=== PATIENT | male | born 1945 | race Caucasian/White ===

== ENCOUNTER → 2017-02-07 | Outpatient (CLI) | payer OTHER ==
[~2017-02-07] MED LIST: ADVAIR 250-501 EACH INH; ALBUTEROL17 GM INH; ALPRAZOLAM PO; AMLODIPINE BESYL5 MG PO; ASPIRINEC PO; BUTALBITAL/APAP/CAFF; COMBIVENT MININEB INH; COMBIVENT RESPIM4 GM INH; DARVOCET-N 1001 TAB PO; DURAGESIC75 MCG TOP; FENTANYL1 EAC2 TD; FLAGYL PO; FLEXERIL PO; FLEXERIL10 MG PO; GABAPENTIN600 MG PO; KCL PO; LASIX PO; LEVAQUIN PO; LISINOPRIL PO; LOPRESSOR PO; LORTAB 10-3251 EACH PO; LORTAB 7.5-5001 TAB PO; NALBUPHINE; NALBUPHINE IM; NALBUPHINE SUBQ; NEURONTIN600 MG PO; PAXIL PO; PERCOCET 10/3251 TAB PO; PERCOCET10 PO; PHENERGAN PO; PREDNISONE10 MG PO; PRINIVIL40 MG PO; TRAZADONE; TRAZODONE HCL150 MG PO; TRAZODONE PO; VICODIN 5/500 T1 TAB PO; VITAMIN D50000 UNIT PO; XANAX1 MG PO; ZOCOR PO; ZOCOR-BORROW, D10 MG PO; ZOCOR10 MG PO; ZOFRAN PO; [UNRECOGNIZED DRUG - REMARK]
--- NOTE | ~2017-02-07 | CR63 ---
[facility] RADIOLOGY TEXT RESULTS PATIENT: LISANDRO CARDENAS LOCATION: [facility] : 47 UNIT #: [id number] AGE: [address]: Yannick Corrigan MD SEX: M ORDER DR: [id number] [address] [address] [id number] O MR#: [id number] Acc #: [id number] NAME: LISANDRO CARDENAS : 1945 SEX: M STUDY DATE/TIME: 02/07/2017 10:17 UNIT: [facility] ROOM: STUDY DESCRIPTION: CR Chest 2 View Attending Physician: Yannick Corrigan M.D. Referring Physician: Yannick Corrigan M.D. Ordering Physician: Yannick Corrigan M.D. Primary Care Physician: Yannick Corrigan M.D. MEDICAL IMAGING REPORT This report is preliminary unless electronic signature is present. EXAM PA and lateral chest. DATE 02/07/2017 HISTORY Spot on lung followup. Sport found a few years ago. History of smoking. COMPARISON AP portable chest, 11/21/2015. FINDINGS A lobulated mass lesion has developed in the perihilar right lung, thought to be within the right upper lobe. It measures nearly 7.5 x 5.5 cm. This is a new finding since 11/21/2015. Left lung appears clear. Background emphysematous changes are thought to be present. Degenerative endplate spurring is present in the thoracic spine. Benign calcified granulomatous changes in the mediastinum. IMPRESSION 1. Lobulated mass in the perihilar right upper lobe measuring 5.5 x 7.5 cm, highly suspicious for malignancy. It is a new finding since 11/21/2015. 2. I contacted the office of Dr. Corrigan regarding pertinent findings and recommendations. I was forwarded to the [employer] system for his office. I left a detailed message and left a callback number if Dr. Corrigan or his staff wishes to discuss the case. Dictated by... [facility] RADIOLOGY TEXT RESULTS PATIENT: LISANDRO CARDENAS LOCATION: [facility] : 47 UNIT #: [id number] AGE: [address]: Yannick Corrigan MD SEX: M ORDER DR: Ruth Ward M.D. THIS IS AN ELECTRONICALLY VERIFIED REPORT Ruth Ward M.D. at 02/08/2017 2:01 PM SOCRATES/mateusz TD: 02/07/2017 13:57 JOB #: [id number] MEDICAL IMAGING REPORT Page 1 of 1
== END | disposition home or self-care (01) ==
LOC: SRAD 10:11
DX: J44.9 Chronic obstructive pulmonary disease, unspecified (principal); R91.8 Other nonspecific abnormal finding of lung field
CPT/HCPCS: 71020